=== PATIENT | female | born 1970 | race American Indian/Alaskan Native ===

== ENCOUNTER 2020-05-08 08:04 | Day surgery (SDC) | payer OTHER ==
[~2020-05-08 08:04] MED LIST: SODIUM CHLORIDE 0.9% 1000 ML 1,000 ML IV SCH
[2020-05-08] MEDS ORDERED: propofoL 200 MG/20 ML VIAL IV ONE ×3 (09:10→09:41)
--- NOTE | 2020-05-08 09:12 | Anesthesia Consultation ---
Anesthesia Consult and Med Hx Date of service: 05/08/20 - Airway Anesthetic Teeth Evaluation: Bridges ROM Head & Neck: Adequate Mental/Hyoid Distance: Adequate Mallampati Class: Class III Intubation Access Assessment: Probably Good - Pre-Operative Health Status ASA Pre-Surgery Classification: ASA3 Proposed Anesthetic Plan: MAC - Pulmonary Hx Smoking: No Hx Asthma: No Hx Respiratory Symptoms: No SOB: No COPD: No Home Oxygen Therapy: No Hx Pneumonia: No Hx Sleep Apnea: Yes - Cardiovascular System Hx Hypertension: Yes Hx Coronary Artery Disease: No Hx Heart Attack/AMI: No Hx Angina: No Hx Percutaneous Transluminal Coronary Angioplasty (PTCA): No Hx Cardia Arrhythmia: No Hx Pacemaker: No Hx Internal Defibrillator: No Hx Valvular Heart Disease: No Hx Heart Murmur: Yes Hx Peripheral Vascular Disease: No - Central Nervous System Hx Neuromuscular Disorder: No (sciatica) Hx Seizures: No CVA: No Hx Back Pain: Yes Hx Psychiatric Problems: Yes (anexity ) - Gastrointestinal Hx Ulcer: No Hx Gastroesophageal Reflux Disease: No - Endocrine Hx Renal Disease: No Hx End Stage Renal Disease: No Hx Cirrhosis: No Hx Liver Disease: No Hx Insulin Dependent Diabetes: No Hx Non-Insulin Dependent Diabetes: Yes Hx Thyroid Disease: No Hx Hypothyroidism: No Hx Hyperthyroidism: No - Hematic Hx Anemia: Yes Hx Sickle Cell Disease: No - Other Systems Hx Alcohol Use: Yes (occ) Hx Substance Use: No Hx Cancer: No Hx Obesity: Yes
--- NOTE | 2020-05-08 09:13 | Anesthesia Day of Surgery ---
Anesthesia Day of Surgery - Day of Surgery Patient Examined: Yes Patient H&P Reviewed: Yes Patient is NPO: Yes
--- NOTE | 2020-05-08 10:09 | Procedure Note ---
Date of procedure: 05/08/20 Pre-op diagnosis: Anemia/ GERD/ Colon Polyp Screening Post-op diagnosis: other (Mild to Moderate Erosive Esophagitis/ Gastritis/R/o Celiac disease/ Slight Bleeding from the Gastric biopsy site requiring the use of the tip of the snare as a Heater probe/ Normal colon Mucosa (no Colon Polyps or Diverticuli)/ Minor, Internal Hemorrhoid) Procedure: EGD with biopsy and use of the tip of the Snare as a heater probe and Colonoscopy Anesthesia: MAC Surgeon: YAQUELIN BLUNT Estimated blood loss: minimal Pathology: list Specimen disposition: to lab Condition: stable Disposition: same day (Treat with PPI; avoid aspirin and NSAID for 5 days, otherwise resume home medication and follow up in 1 to 2 weeks ([phone]).)
--- NOTE | 2020-05-08 10:15 | Operative Report ---
PROCEDURE: Colonoscopy. INDICATIONS: The patient had an EGD done prior to the colonoscopy, which showed [id number] erosive esophagitis and gastritis. She also had a little oozing of blood from the biopsy site and from the gastric body and heat had to be applied to stop the oozing done with the tip of the polypectomy snare. DESCRIPTION OF PROCEDURE: Colonoscopy was done after getting informed consent with MAC anesthesia. Initial rectal exam was unremarkable. Instrument was passed through the rectum onto the cecum, which was identified with ileocecal valve and the appendiceal orifice. Visualization was fair to good. Cecum, ascending colon, transverse colon, descending colon, and sigmoid showed normal mucosa. There was no evidence of any polyps, colitis or diverticular disease and the rectum showed some minor internal hemorrhoid on the retroverted view. There was no bleeding associated with the procedure. ASSESSMENT: Colon polyp screening, no colon polyps noted, no diverticula noted. Minor internal hemorrhoid. PLAN: To treat the patient with PPI because of the EGD findings of esophagitis, gastritis. Have the patient to avoid aspirin and aspirin-related products because of the biopsies done during the EGD; otherwise have the patient resume home medication except for aspirin and aspirin-related products and anticoagulants and follow up in the office in 1-2 weeks' time. Procedure was done in the GI lab with assistance of the GI lab team, which included RNNatalie with the assistance of Daniella laurent and anesthesia. JOB# [id number] HOLLY/ALAN
--- NOTE | 2020-05-08 10:15 | Operative Report ---
INDICATIONS: This is a 49-year-old -[place] female originally from the [facility] who has a history of anemia and GERD symptoms. EGD was done to make sure there was not any significant upper GI pathology present that would account for her clinical situation. DESCRIPTION OF PROCEDURE: The procedure was done after getting informed consent with MAC anesthesia. Instrument was passed through the hypopharynx into the esophagus, which showed [id number] erosive esophagitis. Photo documentation and biopsy was obtained from the distal esophagus. The stomach showed some antral gastritis. The pylorus was patent. The duodenum in the first and the second portion appeared normal. Biopsy was done from the second part of the duodenum to rule out for celiac disease. Additional biopsy was done from the gastric antrum, gastric body and angular incisura. The biopsy that was done from the gastric body, there was little bit of oozing of blood and heat from the tip of the polypectomy snare was then applied to stop the oozing. There was, however, minimal bleeding lost. ASSESSMENT: Anemia, gastroesophageal reflux disease symptoms, mild to moderate erosive esophagitis, gastritis, rule out celiac disease, bleeding from the gastric biopsy site of the gastric body with the application of heat to stop it from further oozing. PLAN: To treat the patient with PPI. Have the patient avoid aspirin and aspirin-related products for the next few days. Have a colonoscopy done for further assessment for colon polyps as part of colon polyp screening and have the patient follow up in the office in 1-2 weeks' time. JOB# [id number] HOLLY/ALAN
[2020-05-08 10:35] VITALS: BP 122/72
--- NOTE | 2020-05-08 14:09 | Post Anesthesia Evaluation ---
- Post Anesthesia Evaluation Patient Participated: Yes Airway Patent: Yes Stable Respiratory Function: Yes Nausea/Vomiting: No Temp > 96.8F: Yes Pain Manageable: Yes Adequeate Hydration: Yes Anesthesia Complications: No
== END 2020-05-08 11:25 | disposition home or self-care (01) ==
LOC: GIO 08:04
DX: R10.9 Unspecified abdominal pain (principal); D64.9 Anemia, unspecified; K21.00 Gastro-esophageal reflux disease with esophagitis, without bleeding; K64.8 Other hemorrhoids; K31.89 Other diseases of stomach and duodenum; K29.70 Gastritis, unspecified, without bleeding; I10 Essential (primary) hypertension; E66.9 Obesity, unspecified; G47.30 Sleep apnea, unspecified; E11.9 Type 2 diabetes mellitus without complications; Z72.89 Other problems related to lifestyle; Z88.8 Allergy status to other drugs, medicaments and biological substances; Z79.899 Other long term (current) drug therapy; Z68.38 Body mass index [BMI] 38.0-38.9, adult
CPT/HCPCS: 43239; 45378; 81025; 82962; 88305; 88342; J2704; J7030